=== PATIENT | female | born 1935 | race Caucasian/White ===

== ENCOUNTER 2017-09-22 15:06 | Inpatient (IN) ==
[2017-09-22] MEDS ORDERED: methylPREDNISolone SOD SUC 125 MG/2 ML VIAL IV STA (15:45)
[2017-09-22] MEDS ORDERED: LEVOFLOXACIN INJ 500 MG in PREMIX 1 EACH IV STA (15:45)
[2017-09-22] MEDS ORDERED: ALBUTEROL/IPRATROPIUM 3 ML NEB RESP TX STA (15:45)
[2017-09-22 16:48] LABS: Basophils # 0.1 10*3/uL (0.0-0.2); Basophils % 0.5 % (0.0-0.8); Eosinophils # 2.9 10*3/uL (0.0-0.87); Eosinophils % 22.5 % (0.00-10.9); Hematocrit 35.5 VOL% (35.7-47.0); Hemoglobin 10.9 GM/DL (12.0-16.0); Immature Granulocytes % 0.9 %; Immature Granulocytes Absolute 0.12 #; Lymphocytes # 1.8 10*3/uL (1.4-4.0); Lymphocytes % 14.2 % (21.3-54.2); Mean Corpuscular HGB Conc 30.7 GM/DL (32-36); Mean Corpuscular Hemoglobin 30 PG (27-34); Mean Corpuscular Volume 95.9 FL (87-102); Mean Platelet Volume 11.6 FL (9.6-12.0); Monocytes # 1.4 10*3/uL (0.11-0.8); Monocytes % 10.7 % (1.7-12.7); Neutrophils # 6.7 10*3/uL (1.4-7.4); Neutrophils % 51.2 % (38.7-73.9); Platelet Count 284 T/CUMM (130-400); Red Cell Distribution Width 13.3 % (9.3-17.3)
[2017-09-22] MEDS ORDERED: LEVOFLOXACIN INJ 100 ML IV ONE (17:00)
[2017-09-22] MEDS ORDERED: methylPREDNISolone SOD SUC 125 MG/2 ML VIAL ONE (17:01)
[2017-09-22 17:07] LABS: Albumin 3.5 G/DL (3.4-5.0); Bilirubin,Total 0.6 MG/DL (0.2-1.0); Calcium 8.9 MG/DL (8.5-10.1); Total Protein 7.3 G/DL (6.4-8.3)
[2017-09-22 17:08] LABS: Osmolality,Calculated 277.5 MOS/KG (273-304); Troponin I Only 0.021 NG/ML (0.00-0.045)
[2017-09-22] MEDS ORDERED: diphenhydrAMINE CAP 25 MG CAPSULE PO PRN (18:05)
[2017-09-22] MEDS ORDERED: ACETAMINOPHEN 325 MG TABLET PO PRN (18:05)
[2017-09-22] MEDS ORDERED: DOCUSATE SODIUM 100 MG CAPSULE PO PRN (18:05)
[2017-09-22] MEDS ORDERED: ONDANSETRON 4 MG/2 ML VIAL IV PRN (18:05)
[2017-09-22] MEDS ORDERED: guaiFENesin/DM ER 600-30 MG TABLET PO PRN (18:05)
[2017-09-22] MEDS ORDERED: ALBUTEROL 2.5 MG/3 ML NEB RESP TX PRN (18:05)
[2017-09-22] MEDS ORDERED: MORPHINE 2 MG/1 ML SYRINGE IV PRN (18:05)
[2017-09-22 18:31] LABS: Eosinophils 23 % (0-10); Lymphocytes 13 % (20-55); Platelet Estimate Adequate; Segmented Neutrophils 57 % (50-85); Total Cells Counted 100
[2017-09-22 18:32] LABS: Hypochromasia Slight; Ovalocytes Slight; Poikilocytosis Slight
[2017-09-22] MEDS: ALBUTEROL/IPRATROPIUM 3 ML NEB RESP TX SCH (19:14)
[2017-09-22] MEDS ORDERED: PIPERACILLIN/TAZOBACTAM 3,375 MG VIAL IV ONE (19:35)
[2017-09-22 19:54] LABS: Troponin I Only 0.024 NG/ML (0.00-0.045)
[2017-09-22] MEDS: PIPERACILLIN/TAZOBACTAM 3,375 MG in SODIUM CHLORIDE 0.9% 100 ML IV SCH (21:15)
[2017-09-22] MEDS: SODIUM CHLORIDE 0.9% 1,000 ML IV SCH (21:15)
[2017-09-22] MEDS: ENOXAPARIN 30 MG/0.3 ML SYRINGE SUBCUT SCH (22:08)
[2017-09-22] MEDS: BUDESONIDE/FORMOTEROL 160-4.5 INHALER 6 GM INH SCH (22:08)
[2017-09-23] MEDS: ALBUTEROL/IPRATROPIUM 3 ML NEB RESP TX SCH ×5 (00:41→23:44)
[2017-09-23] MEDS: methylPREDNISolone SOD SUC 40 MG/1 ML VIAL IV SCH ×4 (01:02→16:38)
[2017-09-23 02:39] LABS: Basophils % 0.1 % (0.0-0.8); Eosinophils % 0.1 % (0.00-10.9); Hemoglobin 9.2 GM/DL (12.0-16.0); Lymphocytes # 0.8 10*3/uL (1.4-4.0); Lymphocytes % 7.7 % (21.3-54.2); Mean Corpuscular HGB Conc 31.7 GM/DL (32-36); Mean Corpuscular Hemoglobin 30 PG (27-34); Mean Corpuscular Volume 93.2 FL (87-102); Mean Platelet Volume 11.9 FL (9.6-12.0); Monocytes # 0.1 10*3/uL (0.11-0.8); Monocytes % 1.1 % (1.7-12.7); Platelet Count 226 T/CUMM (130-400); Red Blood Count 3.11 MC/CUMM (3.8-5.5); Red Cell Distribution Width 13.4 % (9.3-17.3)
[2017-09-23 03:09] LABS: Osmolality,Calculated 286.3 MOS/KG (273-304); Potassium 4.5 MMOL/L (3.5-5.1)
[2017-09-23 03:20] LABS: Troponin I Only 0.032 NG/ML (0.00-0.045)
[2017-09-23] MEDS: PIPERACILLIN/TAZOBACTAM 3,375 MG in SODIUM CHLORIDE 0.9% 100 ML IV SCH ×3 (04:44→18:11)
[2017-09-23] MEDS: SODIUM CHLORIDE 0.9% 1,000 ML IV SCH (05:09)
[2017-09-23] MEDS: PANTOPRAZOLE 40 MG TABLET PO SCH (08:49)
[2017-09-23] MEDS: BUDESONIDE/FORMOTEROL 160-4.5 INHALER 6 GM INH SCH ×2 (08:53→21:55)
[2017-09-23] MEDS ORDERED: HYDROCORTISONE 0.5% CREAM 28.35 GM TUBE TOP PRN (13:28)
[2017-09-23] MEDS ORDERED: SKIN HEALING OINT (AQUAPHOR) 50 GM TUBE TOP PRN (13:29)
[2017-09-23] MEDS: BACITRACIN OINT 0.9 GM PACK TOP SCH (14:56)
[2017-09-23] MEDS: ASPIRIN EC 81 MG TABLET PO SCH (14:57)
[2017-09-23] MEDS: FUROSEMIDE 40 MG/4 ML VIAL IV SCH (16:38)
[2017-09-23] MEDS: ENOXAPARIN 30 MG/0.3 ML SYRINGE SUBCUT SCH (21:55)
[2017-09-23] MEDS: PRAVASTATIN 40 MG TABLET PO SCH (21:55)
[2017-09-24] MEDS: methylPREDNISolone SOD SUC 40 MG/1 ML VIAL IV SCH ×3 (02:02→10:28)
[2017-09-24] MEDS: PIPERACILLIN/TAZOBACTAM 3,375 MG in SODIUM CHLORIDE 0.9% 100 ML IV SCH ×3 (03:33→17:42)
[2017-09-24] MEDS: ALBUTEROL/IPRATROPIUM 3 ML NEB RESP TX SCH ×3 (07:18→19:23)
[2017-09-24] MEDS: FUROSEMIDE 40 MG/4 ML VIAL IV SCH ×2 (08:31→16:48)
[2017-09-24] MEDS: PANTOPRAZOLE 40 MG TABLET PO SCH (08:32)
[2017-09-24] MEDS: BACITRACIN OINT 0.9 GM PACK TOP SCH (08:32)
[2017-09-24] MEDS: BUDESONIDE/FORMOTEROL 160-4.5 INHALER 6 GM INH SCH ×2 (08:32→21:32)
[2017-09-24] MEDS: ASPIRIN EC 81 MG TABLET PO SCH (08:32)
[2017-09-24] MEDS ORDERED: NITROGLYCERIN SL 0.4 MG TABLET SL PRN (13:55)
[2017-09-24] MEDS: predniSONE 20 MG TABLET PO SCH ×2 (15:30→21:31)
[2017-09-24] MEDS: amLODIPine 5 MG TABLET PO SCH (15:31)
[2017-09-24] MEDS: MAGNESIUM CHLORIDE 64 MG TABLET PO SCH (21:31)
[2017-09-24] MEDS: ENOXAPARIN 30 MG/0.3 ML SYRINGE SUBCUT SCH (21:31)
[2017-09-24] MEDS: PRAVASTATIN 40 MG TABLET PO SCH (21:31)
[2017-09-25] MEDS: ALBUTEROL/IPRATROPIUM 3 ML NEB RESP TX SCH ×2 (00:16→09:08)
[2017-09-25] MEDS: PIPERACILLIN/TAZOBACTAM 3,375 MG in SODIUM CHLORIDE 0.9% 100 ML IV SCH ×2 (05:30→10:28)
[2017-09-25 05:49] LABS: Hematocrit 34.2 VOL% (35.7-47.0); Hemoglobin 10.7 GM/DL (12.0-16.0)
[2017-09-25 06:23] LABS: Calcium 8.8 MG/DL (8.5-10.1); Osmolality,Calculated 283.4 MOS/KG (273-304); Potassium 3.6 MMOL/L (3.5-5.1)
[2017-09-25 06:26] LABS: Troponin I Only 0.061 NG/ML (0.00-0.045)
[2017-09-25] MEDS ORDERED: LEVOTHYROXINE 88 MCG TABLET PO SCH (06:30)
[2017-09-25] MEDS ORDERED: OXYBUTYNIN XL 15 MG TABLET PO SCH (09:00)
[2017-09-25] MEDS ORDERED: TUBERCULIN SKIN TEST 0.1 ML SYRINGE INTRADERM ONE (09:42)
[2017-09-25] MEDS: MAGNESIUM CHLORIDE 64 MG TABLET PO SCH (10:16)
[2017-09-25] MEDS: predniSONE 20 MG TABLET PO SCH (10:17)
[2017-09-25] MEDS: FUROSEMIDE 40 MG/4 ML VIAL IV SCH (10:17)
[2017-09-25] MEDS: amLODIPine 5 MG TABLET PO SCH (10:17)
[2017-09-25] MEDS: ASPIRIN EC 81 MG TABLET PO SCH (10:17)
[2017-09-25] MEDS: PANTOPRAZOLE 40 MG TABLET PO SCH (10:17)
[2017-09-25] MEDS: BUDESONIDE/FORMOTEROL 160-4.5 INHALER 6 GM INH SCH (10:18)
[2017-09-25] MEDS: BACITRACIN OINT 0.9 GM PACK TOP SCH (10:19)
[2017-09-25 12:41] VITALS: BP 123/60
== END 2017-09-25 13:53 | disposition home health service (06) | DRG 190 ==
LOC: N.ED 15:06 → SUATTDRO 18:05 → N.EDINP 18:05 → N.TELES 19:47
PROVIDERS: ADMIT Internal Medicine; ATTEND Internal Medicine

== ENCOUNTER 2017-09-26 15:16 | Inpatient (IN) ==
[2017-09-26] MEDS ORDERED: ALBUTEROL/IPRATROPIUM 3 ML NEB RESP TX STA (16:22)
[2017-09-26 16:53] LABS: Apearance,Urine CLEAR (Clear); Bacteria,Urine Occasional /HPF (Few); Bilirubin,Urine Negative (Negative); Blood, Urine Negative (Negative); Glucose,Urine (UA) Negative (Negative); Hyaline Casts,Urine 1 /LPF (0-3); Ketones,Urine Negative (Negative); Mucus,Urine Occasional /LPF (Occasional); Nitrite,Urine Negative (Negative); Protein,Urine Negative; RBC,Urine <1 /HPF (0-4); Renal Epithelial Cells,Urine Occasional /HPF (<1); Urine Color Straw (Yellow); Urine Specific Gravity 1.006 (1.001-1.035); Urine Urobilinogen < 2.0 EU/DL (0.2-1.0); WBC,Urine <1 /HPF (0-6)
[2017-09-26] MEDS: ALBUTEROL/IPRATROPIUM 3 ML NEB RESP TX SCH (16:55)
[2017-09-26 17:09] LABS: Basophils % 0.2 % (0.0-0.8); Eosinophils # 0.2 10*3/uL (0.0-0.87); Hematocrit 43.8 VOL% (35.7-47.0); Hemoglobin 13.4 GM/DL (12.0-16.0); Immature Granulocytes % 1.4 %; Immature Granulocytes Absolute 0.17 #; Lymphocytes # 2.7 10*3/uL (1.4-4.0); Lymphocytes % 21.8 % (21.3-54.2); Mean Corpuscular HGB Conc 30.6 GM/DL (32-36); Mean Corpuscular Hemoglobin 29 PG (27-34); Mean Corpuscular Volume 94.6 FL (87-102); Mean Platelet Volume 11.3 FL (9.6-12.0); Monocytes % 8.5 % (1.7-12.7); Neutrophils # 8.1 10*3/uL (1.4-7.4); Neutrophils % 66.1 % (38.7-73.9); Platelet Count 316 T/CUMM (130-400); Red Blood Count 4.63 MC/CUMM (3.8-5.5); Red Cell Distribution Width 13.4 % (9.3-17.3); White Blood Count 12.2 T/CUMM (4-12)
[2017-09-26 17:20] LABS: Ammonia < 10 UMOL/L (11-32)
[2017-09-26 17:32] LABS: Alanine Aminotransferase 62 U/L (13-56); Albumin 3.6 G/DL (3.4-5.0); Alkaline Phosphatase 85 U/L (45-117); Aspartate Amino Transferase 51 U/L (0-37); Blood Urea Nitrogen 23 MG/DL (7-18); Free T4 (Free Thyroxine) 1.42 NG/DL (0.76-1.46); Glucose 88 MG/DL (74-106); Osmolality,Calculated 283.3 MOS/KG (273-304); Potassium 3.3 MMOL/L (3.5-5.1); Sodium 141 MMOL/L (136-145); Total Protein 7.1 G/DL (6.4-8.3)
[2017-09-26] MEDS ORDERED: methylPREDNISolone SOD SUC 40 MG/1 ML VIAL ONE (19:25)
[2017-09-26] MEDS ORDERED: ENOXAPARIN 30 MG/0.3 ML SYRINGE ONE (19:26)
[2017-09-26] MEDS ORDERED: ONDANSETRON 4 MG/2 ML VIAL IV PRN (20:07)
[2017-09-26] MEDS ORDERED: ACETAMINOPHEN 325 MG TABLET PO PRN (20:07)
[2017-09-26] MEDS ORDERED: HYDROCORTISONE 1% CREAM 28 GM TUBE TOP PRN (20:07)
[2017-09-26] MEDS: SODIUM CHLORIDE 0.9% 1,000 ML IV SCH (20:29)
[2017-09-26] MEDS: methylPREDNISolone SOD SUC 40 MG/1 ML VIAL IV SCH (20:29)
[2017-09-26] MEDS: BUDESONIDE/FORMOTEROL 160-4.5 INHALER 6 GM INH SCH (21:25)
[2017-09-26] MEDS: MAGNESIUM CHLORIDE 64 MG TABLET PO SCH (21:26)
[2017-09-26] MEDS: ENOXAPARIN 30 MG/0.3 ML SYRINGE SUBCUT SCH (23:55)
[2017-09-27] MEDS: SODIUM CHLORIDE 0.9% 1,000 ML IV SCH ×2 (05:15→21:19)
[2017-09-27] MEDS: LEVOTHYROXINE 88 MCG TABLET PO SCH (06:14)
[2017-09-27 06:21] LABS: Basophils % 0.1 % (0.0-0.8); Hematocrit 37.6 VOL% (35.7-47.0); Hemoglobin 11.5 GM/DL (12.0-16.0); Immature Granulocytes % 1.6 %; Immature Granulocytes Absolute 0.14 #; Lymphocytes # 1.2 10*3/uL (1.4-4.0); Lymphocytes % 13.7 % (21.3-54.2); Mean Corpuscular HGB Conc 30.6 GM/DL (32-36); Mean Corpuscular Hemoglobin 29 PG (27-34); Mean Corpuscular Volume 94.2 FL (87-102); Mean Platelet Volume 11.7 FL (9.6-12.0); Monocytes # 0.2 10*3/uL (0.11-0.8); Monocytes % 2.3 % (1.7-12.7); Neutrophils # 7.2 10*3/uL (1.4-7.4); Neutrophils % 82.3 % (38.7-73.9); Platelet Count 294 T/CUMM (130-400); Red Blood Count 3.99 MC/CUMM (3.8-5.5); Red Cell Distribution Width 13.3 % (9.3-17.3); White Blood Count 8.7 T/CUMM (4-12)
[2017-09-27 06:39] LABS: Calcium 8.1 MG/DL (8.5-10.1); Potassium 3.9 MMOL/L (3.5-5.1)
[2017-09-27] MEDS: ALBUTEROL/IPRATROPIUM 3 ML NEB RESP TX SCH ×5 (06:47→20:01)
[2017-09-27] MEDS: MAGNESIUM CHLORIDE 64 MG TABLET PO SCH ×2 (09:52→21:19)
[2017-09-27] MEDS: PANTOPRAZOLE 40 MG TABLET PO SCH (09:52)
[2017-09-27] MEDS: FUROSEMIDE 40 MG TABLET PO SCH ×2 (09:52→16:00)
[2017-09-27] MEDS: POTASSIUM CHLORIDE 20 MEQ TABLET PO SCH (09:52)
[2017-09-27] MEDS: amLODIPine 5 MG TABLET PO SCH (09:52)
[2017-09-27] MEDS: METOPROLOL TARTRATE 25 MG TABLET PO SCH (09:52)
[2017-09-27] MEDS: CETIRIZINE 10 MG TABLET PO SCH (09:53)
[2017-09-27] MEDS: BUDESONIDE/FORMOTEROL 160-4.5 INHALER 6 GM INH SCH ×2 (09:53→21:19)
[2017-09-27] MEDS: methylPREDNISolone SOD SUC 40 MG/1 ML VIAL IV SCH ×2 (10:20→21:19)
[2017-09-27] MEDS: ENOXAPARIN 30 MG/0.3 ML SYRINGE SUBCUT SCH (21:19)
[2017-09-28] MEDS: ALBUTEROL/IPRATROPIUM 3 ML NEB RESP TX SCH ×4 (00:44→20:17)
[2017-09-28] MEDS: LEVOTHYROXINE 88 MCG TABLET PO SCH (06:08)
[2017-09-28] MEDS: SODIUM CHLORIDE 0.9% 1,000 ML IV SCH (06:12)
[2017-09-28] MEDS: MAGNESIUM CHLORIDE 64 MG TABLET PO SCH ×2 (08:28→20:33)
[2017-09-28] MEDS: POTASSIUM CHLORIDE 20 MEQ TABLET PO SCH (08:29)
[2017-09-28] MEDS: METOPROLOL TARTRATE 25 MG TABLET PO SCH (08:29)
[2017-09-28] MEDS: FUROSEMIDE 40 MG TABLET PO SCH (08:29)
[2017-09-28] MEDS: PANTOPRAZOLE 40 MG TABLET PO SCH (08:29)
[2017-09-28] MEDS: amLODIPine 5 MG TABLET PO SCH (08:29)
[2017-09-28] MEDS: methylPREDNISolone SOD SUC 40 MG/1 ML VIAL IV SCH ×2 (08:29→20:34)
[2017-09-28] MEDS: CETIRIZINE 10 MG TABLET PO SCH (08:29)
[2017-09-28] MEDS: BUDESONIDE/FORMOTEROL 160-4.5 INHALER 6 GM INH SCH ×2 (09:53→20:38)
[2017-09-28] MEDS ORDERED: SKIN HEALING OINT (AQUAPHOR) 50 GM TUBE TOP PRN (16:19)
[2017-09-28] MEDS ORDERED: CARVEDILOL 6.25 MG TABLET PO SCH (17:00)
[2017-09-28] MEDS: CARVEDILOL 6.25 MG TABLET PO SCH (17:06)
[2017-09-28] MEDS: ENOXAPARIN 30 MG/0.3 ML SYRINGE SUBCUT SCH (20:33)
[2017-09-29] MEDS: hydrOXYzine HCL 25 MG TABLET PO PRN ×2 (00:08→08:44)
[2017-09-29] MEDS: ALBUTEROL/IPRATROPIUM 3 ML NEB RESP TX SCH ×3 (01:24→14:09)
[2017-09-29] MEDS: LEVOTHYROXINE 88 MCG TABLET PO SCH (06:06)
[2017-09-29] MEDS: CARVEDILOL 6.25 MG TABLET PO SCH (08:43)
[2017-09-29] MEDS: MAGNESIUM CHLORIDE 64 MG TABLET PO SCH (08:43)
[2017-09-29] MEDS: PANTOPRAZOLE 40 MG TABLET PO SCH (08:43)
[2017-09-29] MEDS: BUDESONIDE/FORMOTEROL 160-4.5 INHALER 6 GM INH SCH (08:44)
[2017-09-29] MEDS: amLODIPine 5 MG TABLET PO SCH (08:44)
[2017-09-29] MEDS: methylPREDNISolone SOD SUC 40 MG/1 ML VIAL IV SCH (08:44)
[2017-09-29] MEDS: CETIRIZINE 10 MG TABLET PO SCH (08:44)
[2017-09-29] MEDS: POTASSIUM CHLORIDE 20 MEQ TABLET PO SCH (08:44)
[2017-09-29 11:43] VITALS: BP 137/59
== END 2017-09-29 16:43 | disposition home health service (06) | DRG 606 ==
LOC: EDUNIT# → EDBD → N.ED 15:16 → SUATTDRO 18:46 → N.EDINP 18:46 → N.5E 19:19
PROVIDERS: ADMIT Internal Medicine; ATTEND Internal Medicine

== ENCOUNTER 2018-10-05 11:33 | Inpatient (IN) ==
[2018-10-05 13:14] LABS: Basophils % 0.3 % (0.0-0.8); Eosinophils # 0.2 10*3/uL (0.0-0.87); Eosinophils % 2.6 % (0.00-10.9); Hemoglobin 12.4 GM/DL (12.0-16.0); Immature Granulocytes % 0.8 %; Immature Granulocytes Absolute 0.07 #; Lymphocytes # 1.8 10*3/uL (1.4-4.0); Lymphocytes % 19.5 % (21.3-54.2); Mean Corpuscular HGB Conc 31.8 GM/DL (32-36); Mean Corpuscular Hemoglobin 29 PG (27-34); Mean Corpuscular Volume 91.3 FL (87-102); Mean Platelet Volume 12.3 FL (9.6-12.0); Monocytes # 1.2 10*3/uL (0.11-0.8); Monocytes % 13.1 % (1.7-12.7); Neutrophils # 5.8 10*3/uL (1.4-7.4); Neutrophils % 63.7 % (38.7-73.9); Platelet Count 148 T/CUMM (130-400); Red Blood Count 4.27 MC/CUMM (3.8-5.5); Red Cell Distribution Width 13.1 % (9.3-17.3); White Blood Count 9.1 T/CUMM (4-12)
[2018-10-05 13:36] LABS: Calcium 8.6 MG/DL (8.5-10.1); Potassium 3.8 MMOL/L (3.5-5.1); Thyroid Stimulating Hormone 3.33 uIU/ml (0.358-3.74)
[2018-10-05] MEDS ORDERED: ONDANSETRON 4 MG/2 ML VIAL IV PRN (14:37)
[2018-10-05] MEDS ORDERED: ACETAMINOPHEN 325 MG TABLET PO PRN (14:37)
[2018-10-05] MEDS ORDERED: DOCUSATE SODIUM 100 MG CAPSULE PO PRN (14:37)
[2018-10-05] MEDS ORDERED: SODIUM CHLORIDE 0.9% 1,000 ML IV SCH (15:00)
[2018-10-05] MEDS ORDERED: hydrOXYzine HCL 10 MG TABLET PO SCH (18:00)
[2018-10-05 18:26] LABS: Apearance,Urine Slightly Hazy (Clear); Bilirubin,Urine Negative (Negative); Blood, Urine Negative (Negative); Glucose,Urine (UA) Negative (Negative); Ketones,Urine Negative (Negative); Nitrite,Urine Positive (Negative); Protein,Urine Negative; Urine Color Yellow (Yellow); Urine Specific Gravity 1.008 (1.001-1.035); Urine Urobilinogen < 2.0 EU/DL (0.2-1.0)
[2018-10-05 19:09] LABS: Bacteria,Urine 4+ /HPF (Few); RBC,Urine Rare /HPF (0-4); Squamous Epithelial Cell,Urine Rare /HPF (0-10); WBC,Urine 0-5 /HPF (0-6)
[2018-10-05] MEDS: MAGNESIUM CHLORIDE 64 MG TABLET PO SCH (22:47)
[2018-10-05] MEDS: CALCIUM (CARBONATE)/VITAMIN D 600 MG-400 UNIT TABLET PO SCH (22:47)
[2018-10-06 04:34] LABS: Basophils % 0.4 % (0.0-0.8); Eosinophils # 0.3 10*3/uL (0.0-0.87); Eosinophils % 3.3 % (0.00-10.9); Hematocrit 38.2 VOL% (35.7-47.0); Immature Granulocytes % 0.4 %; Immature Granulocytes Absolute 0.04 #; Lymphocytes % 19.7 % (21.3-54.2); Mean Corpuscular HGB Conc 31.4 GM/DL (32-36); Mean Corpuscular Hemoglobin 29 PG (27-34); Mean Corpuscular Volume 91.2 FL (87-102); Mean Platelet Volume 12.4 FL (9.6-12.0); Monocytes # 1.2 10*3/uL (0.11-0.8); Monocytes % 11.5 % (1.7-12.7); Neutrophils # 6.5 10*3/uL (1.4-7.4); Neutrophils % 64.7 % (38.7-73.9); Platelet Count 148 T/CUMM (130-400); Red Blood Count 4.19 MC/CUMM (3.8-5.5); Red Cell Distribution Width 12.9 % (9.3-17.3)
[2018-10-06 04:50] LABS: Albumin 2.9 G/DL (3.4-5.0); Bilirubin,Total 0.7 MG/DL (0.2-1.0); Calcium 8.7 MG/DL (8.5-10.1); Osmolality,Calculated 276.5 MOS/KG (273-304); Potassium 3.3 MMOL/L (3.5-5.1); Total Protein 6.7 G/DL (6.4-8.3)
[2018-10-06] MEDS: LEVOTHYROXINE 88 MCG TABLET PO SCH (07:04)
[2018-10-06] MEDS: MULTIVITAMIN (CENTRUM) TABLET PO SCH (09:38)
[2018-10-06] MEDS: PANTOPRAZOLE 40 MG TABLET PO SCH (09:38)
[2018-10-06] MEDS: CALCIUM (CARBONATE)/VITAMIN D 600 MG-400 UNIT TABLET PO SCH ×2 (09:38→21:56)
[2018-10-06] MEDS: amLODIPine 5 MG TABLET PO SCH (09:38)
[2018-10-06] MEDS: MAGNESIUM CHLORIDE 64 MG TABLET PO SCH ×2 (09:38→21:56)
[2018-10-06] MEDS: POTASSIUM CHLORIDE 20 MEQ TABLET PO SCH (09:38)
[2018-10-06] MEDS: FUROSEMIDE 40 MG TABLET PO SCH (09:38)
[2018-10-06] MEDS: ASPIRIN EC 81 MG TABLET PO SCH (09:38)
[2018-10-06] MEDS: cefTRIAXone 1,000 MG in SYRINGE 1 EACH IV SCH (10:55)
[2018-10-06] MEDS ORDERED: POTASSIUM CHLORIDE 20 MEQ TABLET PO ONE (16:00)
[2018-10-07] MEDS ORDERED: MELATONIN 3 MG TABLET PO PRN (02:32)
[2018-10-07] MEDS: LEVOTHYROXINE 88 MCG TABLET PO SCH (06:37)
[2018-10-07] MEDS: MAGNESIUM CHLORIDE 64 MG TABLET PO SCH ×2 (10:05→21:15)
[2018-10-07] MEDS: amLODIPine 5 MG TABLET PO SCH (10:06)
[2018-10-07] MEDS: MULTIVITAMIN (CENTRUM) TABLET PO SCH (10:06)
[2018-10-07] MEDS: ASPIRIN EC 81 MG TABLET PO SCH (10:06)
[2018-10-07] MEDS: POTASSIUM CHLORIDE 20 MEQ TABLET PO SCH (10:06)
[2018-10-07] MEDS: FUROSEMIDE 40 MG TABLET PO SCH (10:06)
[2018-10-07] MEDS: PANTOPRAZOLE 40 MG TABLET PO SCH (10:06)
[2018-10-07] MEDS: CALCIUM (CARBONATE)/VITAMIN D 600 MG-400 UNIT TABLET PO SCH ×2 (10:09→21:15)
[2018-10-07] MEDS: cefTRIAXone 1,000 MG in SYRINGE 1 EACH IV SCH (10:29)
[2018-10-07] MEDS ORDERED: TUBERCULIN SKIN TEST 0.1 ML SYRINGE INTRADERM ONE (14:00)
[2018-10-07] MEDS ORDERED: POTASSIUM CHLORIDE 20 MEQ PACK PO ONE (19:05)
[2018-10-08] MEDS: LEVOTHYROXINE 88 MCG TABLET PO SCH (08:35)
[2018-10-08] MEDS: cefTRIAXone 1,000 MG in SYRINGE 1 EACH IV SCH (09:33)
[2018-10-08] MEDS: PANTOPRAZOLE 40 MG TABLET PO SCH (09:37)
[2018-10-08] MEDS: amLODIPine 5 MG TABLET PO SCH (09:37)
[2018-10-08] MEDS: ASPIRIN EC 81 MG TABLET PO SCH (09:37)
[2018-10-08] MEDS: MAGNESIUM CHLORIDE 64 MG TABLET PO SCH (09:37)
[2018-10-08] MEDS: MULTIVITAMIN (CENTRUM) TABLET PO SCH (09:37)
[2018-10-08] MEDS: FUROSEMIDE 40 MG TABLET PO SCH (09:38)
[2018-10-08] MEDS: POTASSIUM CHLORIDE 20 MEQ TABLET PO SCH (09:38)
[2018-10-08] MEDS: CALCIUM (CARBONATE)/VITAMIN D 600 MG-400 UNIT TABLET PO SCH (09:50)
[2018-10-08] MEDS ORDERED: SODIUM CHLORIDE 0.9% 500 ML IV ONE (11:08)
[2018-10-08 11:51] VITALS: BP 167/67
== END 2018-10-08 13:11 | disposition home health service (06) | DRG 309 ==
LOC: EDUNIT# → EDBD → N.ED 11:33 → N.EDINP 14:37 → N.TELES 16:25
PROVIDERS: ADMIT Internal Medicine; ATTEND Internal Medicine